=== PATIENT | male | born 1985 | race Caucasian/White ===

== ENCOUNTER 2025-08-17 09:37 | Emergency (ER) | payer SELFPAY ==
[~2025-08-17] VITALS: Ht 160 cm; Wt 68.0 kg
[2025-08-17 09:39] VITALS: O2SAT 98
[2025-08-17 10:08] LABS: BASOPHILS % 0.9 % (0.0-2.0); EOSINOPHILS % 1.2 % (0.0-5.0); HEMATOCRIT. 43.6 % (42.0-52.0); HEMOGLOBIN. 14.6 g/dL (14.0-18.0); LYMPHOCYTES % 36.3 % (20.0-50.0); MEAN PLATELET VOLUME 7.5 fl (7.4-10.4); MONOCYTES % 10.2 % (2.0-8.0); NEUTROPHILS % 51.4 % (40.0-76.0); PLATELET 198 x1000/uL (130-400); RED BLOOD CELL COUNT 4.92 mill/uL (4.7-6.1); RED CELL DISTRIBUTION WIDTH 14.0 % (11.6-14.6)
[2025-08-17 10:21] LABS: CREATININE 0.5 mg/dL (0.6-1.3); UREA NITROGEN BLOOD < 5 mg/dL (9-23)
[2025-08-17] MEDS: ASPIRIN 81MG TABLET PO ONE (10:21)
[2025-08-17 10:22] LABS: TROPONIN I HIGH SENSITIVITY < 4 ng/L (3.0-53)
[2025-08-17 10:23] LABS: ASPARTATE AMINOTRANSFERASE 57 IU/L (<34); BILIRUBIN TOTAL 0.6 mg/dL (0.1-1.0); PROTEIN TOTAL 6.8 g/dL (6.0-8.3)
[2025-08-17 11:17] VITALS: TEMP 36.8
[2025-08-17 13:15] VITALS: BP 110/75; PULSE 88; RESP 17; O2SAT 98
== END 2025-08-17 13:18 | disposition home or self-care (01) ==
LOC: ER 09:37
DX: F10.129 Alcohol abuse with intoxication, unspecified (principal); F15.129 Other stimulant abuse with intoxication, unspecified; R07.89 Other chest pain; E11.9 Type 2 diabetes mellitus without complications; Z79.899 Other long term (current) drug therapy; Y90.9 Presence of alcohol in blood, level not specified
CPT/HCPCS: 80053; 83690; 85025; 84484; 36415; 71045; 93005; 99285; Z7610